=== PATIENT | male | born 1985 | race Caucasian/White ===

== ENCOUNTER 2020-11-09 21:40 | Inpatient (IN) | payer OTHER ==
[2020-11-09] MEDS ORDERED: ETOMIDATE 2 MG/ML 10 ML VIAL IVP STA (22:06)
[2020-11-09] MEDS ORDERED: SUCCINYLCHOLINE CHLORIDE VIAL 200 MG/10 ML VIAL IV STA (22:06)
[2020-11-09] MEDS ORDERED: LORazepam 2 MG/ML INJ IV STA (22:11)
[2020-11-09] MEDS ORDERED: SODIUM CHLORIDE 0.9% 1,000 ML IV ONE (22:11)
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
--- NOTE | 2020-11-09 22:32 | XR ---
EXAMINATION TYPE: XR chest 1V portable DATE OF EXAM: 11/09/2020 COMPARISON: NONE HISTORY: Check tube placement TECHNIQUE: Single view FINDINGS: Endotracheal tube is 3 cm from the jessica. Lungs are clear. Heart and mediastinum are matt l. There is nasogastric tube in the gastric fundus. There is no heart failure. There is no pleural ef fusion. Bony thorax is intact. IMPRESSION: No active cardiopulmonary disease.
[2020-11-09 23:05] LABS: ABG Base Excess -4.3 mmol/L; ABG HCO3 22 mmol/L (21-25); ABG Oxygen Saturation 95.8 % (94-97); ABG PCO2 49 mmHg (35-45); ABG PH 7.28 (7.35-7.45); ABG PO2 93 mmHg (83-108); Allen Test Performed? Yes
[2020-11-09 23:14] LABS: Basophils % (A) 0 %; Eosinophils # (A) 0.1 k/uL (0-0.7); Eosinophils % (A) 1 %; HCT 39.2 % (39.0-53.0); HGB 12.6 gm/dL (13.0-17.5); Hypochromasia Slight; Lymphocytes # (A) 1.3 k/uL (1.0-4.8); Lymphocytes % (A) 10 %; MCH 31.5 pg (25.0-35.0); MCHC 32.2 g/dL (31.0-37.0); MCV 97.9 fL (80.0-100.0); Mean Platelet Volume 7.9; Monocytes # (A) 0.5 k/uL (0-1.0); Monocytes % (A) 4 %; Neutrophils % (A) 83 %; Platelet Count 136 k/uL (150-450); RBC 4.01 m/uL (4.30-5.90); RDW 13.3 % (11.5-15.5); WBC 12.1 k/uL (3.8-10.6)
[2020-11-09 23:26] LABS: Appearance,Urine Clear (Clear); Bilirubin,Urine Negative (Negative); Blood,Urine Negative (Negative); Color,Urine Light Yellow; Glucose,Urine (UA) Negative (Negative); Ketones,Urine Negative (Negative); Leukocyte Esterase,Urine Negative (Negative); Nitrite,Urine Negative (Negative); Protein,Urine Negative (Negative); Specific Gravity,Urine 1.007 (1.001-1.035); Urobilinogen,Urine <2.0 mg/dL (<2.0)
--- NOTE | 2020-11-09 23:39 | CT ---
EXAMINATION TYPE: CT brain cspine wo con DATE OF EXAM: 11/09/2020 COMPARISON: None HISTORY: ETOH. Unknown if pt. fell. Pt. is intubated CT DLP: 1387.2 mGycm Automated exposure control for dose reduction was used. Ventricles have normal size. There is no mass effect nor midline shift. There is no sign of intracran ial hemorrhage. Exam limited slightly by motion. Calvarium is intact. There is normal aeration of the mastoid sinuses. Cervical vertebra have normal spacing and alignment. Facet joints are intact. Posterior elements are intact. There is no evidence of a fracture. IMPRESSION: Negative CT scan of the brain. Negative CT scan cervical spine. No fracture.
[2020-11-09 23:46] LABS: Amphetamine Screen,Urine Not Detected (NotDetected); Barbiturate Screen,Urine Not Detected (NotDetected); Benzodiazepines Screen,Urine Not Detected (NotDetected); Cocaine Screen,Urine Not Detected (NotDetected); Methadone Screen, Urine Not Detected (NotDetected); Opiate Screen,Urine Not Detected (NotDetected); Phencyclidine Screen,Urine Not Detected (NotDetected); Tricyclic Antidepressant,Urine Not Detected (NotDetected); Urn Cannabinoid Scrn Detected (NotDetected)
[2020-11-09 23:47] LABS: Oxycodone Screen, Urine Not Detected (NotDetected)
[2020-11-10 00:15] LABS: Partial Thromboplastin Time 22.4 sec (22.0-30.0); Prothrombin Time 10.1 sec (9.0-12.0)
[2020-11-10 00:16] LABS: ALT 61 U/L (4-49); AST 48 U/L (17-59); African American GFR (CKD) >90 (>60 ml/min/1.73 sqM); Albumin 3.8 g/dL (3.5-5.0); Alkaline Phosphatase 59 U/L (38-126); Anion Gap 11 mmol/L; Blood Urea Nitrogen 7 mg/dL (9-20); Calcium 7.5 mg/dL (8.4-10.2); Carbon Dioxide 19 mmol/L (22-30); Chloride 110 mmol/L (98-107); Glucose 129 mg/dL (74-99); Non-African American GFR(CKD) >90 (>60 ml/min/1.73 sqM); Potassium 4.1 mmol/L (3.5-5.1); Sodium 140 mmol/L (137-145); Total Bilirubin 0.4 mg/dL (0.2-1.3); Total Protein 6.3 g/dL (6.3-8.2)
[2020-11-10 00:26] LABS: Alcohol 412 mg/dL
[2020-11-10] MEDS ORDERED: NALOXONE 0.4 MG/ML 1 ML VIAL IV PRN (00:54)
[2020-11-10] MEDS ORDERED: PANTOPRAZOLE 40 MG/10 ML VIAL IVP ONE (01:42)
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
[2020-11-10 03:34] LABS: Basophils % (A) 0 %; Eosinophils % (A) 0 %; HCT 45.7 % (39.0-53.0); HGB 15.3 gm/dL (13.0-17.5); Lymphocytes # (A) 2.1 k/uL (1.0-4.8); Lymphocytes % (A) 21 %; MCH 31.3 pg (25.0-35.0); MCHC 33.5 g/dL (31.0-37.0); MCV 93.5 fL (80.0-100.0); Mean Platelet Volume 7.7; Monocytes # (A) 0.4 k/uL (0-1.0); Monocytes % (A) 4 %; Neutrophils # (A) 7.3 k/uL (1.3-7.7); Neutrophils % (A) 73 %; Platelet Count 163 k/uL (150-450); RBC 4.88 m/uL (4.30-5.90); RDW 13.4 % (11.5-15.5); WBC 10.1 k/uL (3.8-10.6)
[2020-11-10 03:45] LABS: African American GFR (CKD) >90 (>60 ml/min/1.73 sqM); Anion Gap 9 mmol/L; Blood Urea Nitrogen 7 mg/dL (9-20); Calcium 7.6 mg/dL (8.4-10.2); Carbon Dioxide 24 mmol/L (22-30); Chloride 108 mmol/L (98-107); Glucose 128 mg/dL (74-99); Magnesium 1.8 mg/dL (1.6-2.3); Non-African American GFR(CKD) >90 (>60 ml/min/1.73 sqM); Phosphorus 3.5 mg/dL (2.5-4.5); Potassium 4.2 mmol/L (3.5-5.1); Sodium 141 mmol/L (137-145)
[2020-11-10] MEDS: SODIUM CHLORIDE 0.9% 1,000 ML IV SCH ×2 (04:02→08:44)
[2020-11-10] MEDS ORDERED: CHLORHEXIDINE GLUCONATE 15 ML CUP MUCOUS MEM ONE ×2 (05:07→08:43)
[2020-11-10 05:11] LABS: ABG Base Excess -3.8 mmol/L; ABG HCO3 22 mmol/L (21-25); ABG Oxygen Saturation 93.9 % (94-97); ABG PCO2 37 mmHg (35-45); ABG PH 7.37 (7.35-7.45); ABG PO2 69 mmHg (83-108); ABG TCO2 23 mmol/L (19-24); Allen Test Performed? Yes
[2020-11-10 06:02] LABS: Amorphous Sediment,Urine Moderate /hpf; Appearance,Urine Turbid (Clear); Bilirubin,Urine Negative (Negative); Blood,Urine Negative (Negative); Color,Urine Yellow; Glucose,Urine (UA) Negative (Negative); Ketones,Urine Negative (Negative); Leukocyte Esterase,Urine Negative (Negative); Mucus,Urine Rare /hpf; Nitrite,Urine Negative (Negative); PH, Urine 5.5 (5.0-8.0); Protein,Urine Negative (Negative); Specific Gravity,Urine 1.022 (1.001-1.035); Urobilinogen,Urine <2.0 mg/dL (<2.0)
--- NOTE | 2020-11-10 07:49 | XR ---
EXAMINATION TYPE: XR chest 1V portable DATE OF EXAM: 11/10/2020 Comparison: 11/09/2020 Clinical History: 35-year-old male Tube placement Findings: ET tube is satisfactory. NG tube courses below the diaphragm. Heart normal size. Improved aeration wi thin the bilateral lungs. No rogerio consolidation or pleural effusion. Impression: Improvement in bilateral interstitial prominence. No acute process seen.
[2020-11-10] MEDS ORDERED: HEPARIN SODIUM,PORCINE 5,000 UNIT/ML 1 ML VIAL SQ SCH (09:00)
[2020-11-10] MEDS ORDERED: PANTOPRAZOLE 40 MG/10 ML VIAL IVP SCH (09:00)
[2020-11-10] MEDS ORDERED: FAMOTIDINE 20 MG/2 ML VIAL IV SCH (09:00)
[2020-11-10 09:41] LABS: Glucose,Whole Blood 123 mg/dL (75-99)
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
[2020-11-10] MEDS ORDERED: LORazepam 2 MG/ML INJ IV PRN ×3 (10:06)
[2020-11-10] MEDS ORDERED: THIAMINE 100 MG/ML 2 ML VIAL IM STA (10:06)
[2020-11-10 10:14] VITALS: TEMP 98.8
[2020-11-10] MEDS ORDERED: HALOPERIDOL LACTATE 5 MG/ML 1 ML VIAL IVP PRN (11:13)
[2020-11-10 13:45] VITALS: BP 109/66; PULSE 100; RESP 14
[2020-11-10 15:31] LABS: Glucose,Whole Blood 116 mg/dL (75-99)
[2020-11-10] MEDS ORDERED: THIAMINE 100 MG TAB PO SCH (17:30)
--- NOTE | 2020-11-10 18:46 | P.DS ---
Providers Date of admission: 11/10/20 00:54 Expected date of discharge: 11/10/20 Attending physician: Rocky Rider MD Consults: 11/10/20 00:54 Consult Physician Urgent Consulting Provider: Ulises Granados Reason/Comments: Alcohol intoxication. Intubated patient. Do you want consulting provider notified?: Already Contacted Primary care physician: Stated None Hospital Course: Discharge Diagnosis: Left Against Medical Advice Toxic encephalopathy Alcohol intoxication lactic acidosis Leukocytosis Thrombocytopenia Hospital Course: Patient is a 35-year-old male with no reported past medical history who presented to the ER with decreased responsiveness. He was intubated in the ER due to a GCS of 3. He started on propofol and subsequently admitted to the ICU. He was found have metabolic acidosis was continued on IV fluids. On the morning of 11/10 he passed a spontaneous breathing trial was subsequently extubated. He was immediately started asking to leave AGAINST MEDICAL ADVICE. We related until his blood alcohol level was less than 80 prior to letting him leave AGAINST MEDICAL ADVICE. During that time. He was verbally abusive to staff and required to be restrained. Patient subsequently signed out AGAINST MEDICAL ADVICE. Attempted to see patient he was cursing at nurses and wanting to leave AMA. Had to be restrained. No formal exam preformed as patient admitted same day Vital signs reviewed and stable. General: appears agitated, yelling Neuro: Moving all 4 extremities independently, no tremors noted. Psych: Alert, yelling, agitated A total of 20 minutes of time were spent preparing this complex discharge summary . Patient Condition at Discharge: Undetermined Plan - Discharge Summary New Discharge Prescriptions: No Action Sertraline [Zoloft] 50 mg PO DAILY Discharge Medication List Sertraline [Zoloft] 50 mg PO DAILY 11/09/20 [History] Follow up Appointment(s)/Referral(s): None,Stated [Primary Care Provider] - 1-2 days
== END 2020-11-10 15:52 | disposition left against medical advice (07) | DRG 894 ==
LOC: EC 21:40 → 2SICU 11-10 00:54
PROVIDERS: ADMIT Internal Medicine; ATTEND Internal Medicine
PROC: 5A1935Z Respiratory Ventilation, Less than 24 Consecutive Hours (ICD-10-PCS; principal; 2020-11-10)
PROC: 0BH17EZ Insertion of Endotracheal Airway into Trachea, Via Natural or Artificial Opening (ICD-10-PCS; principal; 2020-11-10)
DX: F10.129 Alcohol abuse with intoxication, unspecified (principal); G92 Toxic encephalopathy; J96.01 Acute respiratory failure with hypoxia; E87.2 Acidosis; F05 Delirium due to known physiological condition; D69.6 Thrombocytopenia, unspecified; F32.9 Major depressive disorder, single episode, unspecified; D64.9 Anemia, unspecified; Y90.8 Blood alcohol level of 240 mg/100 ml or more; Z79.899 Other long term (current) drug therapy; Z98.890 Other specified postprocedural states
CPT/HCPCS: 31500; 36415; 36600; 70450; 71045; 72125; 80048; 80053; 80306; 80320; 81001; 81003; 82805; 83605; 83735; 84100; 84484; 85025; 85610; 85730; 93005; 94002; 94003; 96361; 96374; 99291